=== PATIENT | male | born 1985 | race African-American/Black ===

== ENCOUNTER 2017-01-11 11:40 | Emergency (ER) | payer OTHER ==
[~2017-01-11] VITALS: Ht 185.4 cm; Wt 88.0 kg
[~2017-01-11 11:40] MED LIST: ATIVAN0.5 MG PO; LIORESAL 10MG T10 MG PO; LOTRIMIN CR1 %/30 GM TOP; LOTRISONE CREAM15 GM TOP; MOTRIN 600 MG600 MG PO; MOTRIN800 MG PO; POLYTRIM O200 GTT/BO OPH; PROTONIX40 M3 PO; VICODIN5-300 PO; ZOFRAN ODT4 M1 PO
[2017-01-11 11:48] VITALS: BP 167/89
--- NOTE | 2017-01-11 12:17 | ED THROAT/DENTAL COMPLAINT ---
History of Present Illness General Chief Complaint: General Adult Stated Complaint: SWOLLEN LYMPH NODES Source: patient, old records Exam Limitations: no limitations Vital Signs & Intake/Output Vital Signs & Intake/Output Vital Signs Date Time Temp Pulse Resp B/P Pulse O2 O2 Flow FiO2 Ox Delivery Rate 01/11 1148 97.7 67 18 167/89 99 Room Air Room Air Allergies Coded Allergies: NSAIDS (Non-Steroidal Anti-Inflamma (Intermediate, UPSET STOMACH 02/14/16) Reconcile Medications Amoxicillin 500 MG CAPSULE 1 CAP PO TID ANTIBIOTIC, INFECTION (Reported) Betamethasone Dipropionate 0.05 % CREAM..G. 1 LULA TOP BID SKIN PROBLEMS ( Reported) apply to affected area(s) Triage Note: TRIAGE: 31 Y/O MALE PRESENTS C/O ENLARGED RIGHT LYMPH NODE. HAD RECENT DENTAL WORK. BOUGHT A TOOTH FILLING ONLINE AND PUT IT IN HIMSELF. REPORTS SIGNIFICANT OTHER HAD A SWOLLEN LYMPH NODE AND WAS DIAGNOSED WITH STREP THROAT. HAD GONE TO THE URGENT CARE AND THEY SUGGESTED BLOOD WORK. Triage Nurses Notes Reviewed? yes Onset: Gradual Duration: day(s): (5), constant Timing: recent history Injury Environment: home Severity: mild Severity Numbers: 3 No Modifying Factors: none Associated Symptoms: denies HPI: 31-year-old male presents emergency room complaining of 2 enlarged lymph nodes in his neck which he first noticed 5 days ago. The patient states that he recently bought a tooth filling online which she placed prior to the swollen lymph nodes beginning. He denies pain fever chills night sweats no recent weight loss. He went to an urgent care today at which time he was prescribed amoxicillin, the patient states he was referred here for blood work. Patient states that he denies sore throat cough change in voice rhinorrhea congestion or dental pain. No chest pain shortness of breath or abdominal pain nausea or vomiting. There are no modifying factors or associated symptoms otherwise. no pain, no radiation of symptoms. he states the swollen lymph nodes have been fluctuating in size since they began there are nontender no rashes to his skin. Past History Travel History Traveled to [place] past 21 day No Medical History Any Pertinent Medical History? see below for history Neurological: NONE EENT: NONE Cardiovascular: NONE Respiratory: NONE Gastrointestinal: NONE Hepatic: NONE Renal: NONE Musculoskeletal: fracture, RT HAND FX Psychiatric: anxiety Endocrine: NONE Blood Disorders: NONE Cancer(s): NONE JUNIOR PHP DEVELOPER/Reproductive: NONE Surgical History Surgical History: ABD SX CHILD S/P TRAUMATIC INJURY-METAL INTO ABDOMEN Psychosocial History What is your primary language Greek Tobacco Use: Never used ETOH Use: denies use Illicit Drug Use: marijuana Family History Hx Contributory? No Review of Systems Review of Systems Constitutional: Reports: see HPI. All Other Systems: Reviewed and Negative Comments Review of systems: See HPI, All other systems negative. Constitutional, no chills no fever, no malaise HEENT: No visual changes no sore throat no congestion Cardiovascular: No chest pain , no palpitation , no orthopnea no ankle swelling Skin, no jaundice no rashes, no change in skin Respiratory: No dyspnea no cough no sputum GI: No nausea no vomiting, no diarrhea : No dysuria Muscle skeletal: No joint pain, no back pain, no neck pain, Neurologic: No numbness , no headache Psych: No stress Heme/endocrine: No bruising no bleeding Immunology: No lymphadenopathy Physical Exam Physical Exam General Appearance: well developed/nourished, no apparent distress, alert, awake Mouth/Throat: normal mouth inspection, pharynx normal Comments: Well-developed well-nourished patient in no apparent distress. HHead/Face: Atraumatic, no maxillary/frontal sinus tenderness, no facial swelling Eyes: PERRL, EOMI, no conjunctival injection. No nystagmus Ear:External auditory canal and Tympanic membranes clear, no erythema, no FB. Nose: atraumatic.Normal inspection: No bleeding, no septal hematoma Throat: Moist mucous membranes.Pharynx normal. No pharyngeal erythema/exudate seen. No stridor/drooling or assymetry. No swelling or edema. Neck: Supple, there are 2 localized lymph nodes one to the right submandibular and 1 to the left posterior cervical chain Nontender, FROM Back: FROM, Nontender Cardiovascular: Regular rate and rhythms no murmurs rubs or gallops, Respiratory: Chest nontender.There were no bony deformities, no asymmetry. No respiratory distress. Patient speaking in full complete sentences. Breath sounds clear to auscultation bilaterally: NO W/R/R Extremities: full range of motion, no inguinal or axilla adenopathy Neuro: Alert and oriented x3 Skin: Warm & dry;No appreciable rash on exposed skin Psych: Mood affect normal, normal memory normal judgment. Core Measures ACS in differential dx? No Severe Sepsis Present: No Septic Shock Present: No Progress Differential Diagnosis: Ludwigs angina, odontogenic abscess, kelsi-tonsillar abscess, strep pharyngitis, lymphadenopathy malignancy Plan of Care: Orders Procedure Date/time Status MONOSPOT TEST 01/11 1230 Complete CBC WITHOUT DIFFERENTIAL 01/11 1230 Complete BASIC METABOLIC PANEL 01/11 1230 Complete Laboratory Tests 01/11/17 1236: Anion Gap 12, Estimated GFR > 60, BUN/Creatinine Ratio 17.0, Glucose 97, Calcium 10.0, CBC w Diff NO MAN DIFF REQ, RBC 5.33, MCV 90.2, MCH 29.9, RDW 13.5, MPV 7.0 L, Gran % 72.0, Lymphocytes % 19.0 L, Monocytes % 5.5, Eosinophils % 3.1, Basophils % 0.4, Absolute Granulocytes 5.5, Absolute Lymphocytes 1.4, Absolute Monocytes 0.4, Absolute Eosinophils 0.2, Absolute Basophils 0, PUBS MCHC 33.2, Infectious [place] Titer NEGATIVE Old records reviewed labs ordered. Discussed the patient at length all of his lab results E for close follow-up with his primary care physician at [facility] , the patient has a prescription for amoxicillin already, he feels this point I answered all his questions cleared for discharge (TEDDY DICKSON,SAMREEN) Departure Departure Time of Disposition: 1318 Disposition: HOME OR SELF CARE Condition: Stable Clinical Impression Primary Impression: Lymphadenopathy Referrals: CATHLEEN BELL MD (PCP/Family) Additional Instructions: Follow up with [facility] clinic if symptoms persist as he may need an ultrasound in the future as an outpatient. Take your antibiotics as prescribed return with any concerns Departure Forms: Customer Survey General Discharge Information
[2017-01-11] MEDS ORDERED: BETAMETHASONE D15 G4 TOP (12:39)
[2017-01-11] MEDS ORDERED: AMOXICILLIN500 M2 PO (12:40)
[2017-01-11 12:44] LABS: ABSOLUTE BASOPHIL COUNT 0 /CUMM (0.0-0.2); ABSOLUTE EOSINOPHIL COUNT 0.2 /CUMM (0.0-0.7); ABSOLUTE GRANULOCYTE CT 5.5 /CUMM (1.4-6.5); ABSOLUTE LYMPH COUNT 1.4 /CUMM (1.2-3.4); ABSOLUTE MONOCYTE COUNT 0.4 /CUMM (0.10-0.60); BASOPHIL % 0.4 % (0.0-2.0); EOSINOPHIL % 3.1 % (0-5); HEMATOCRIT 48.1 % (42-52); MEAN CORPUSCULAR HGB 29.9 PG (27.0-31.0); MEAN CORPUSCULAR HGB CONC 33.2 G/DL (33.0-37.0); MEAN CORPUSCULAR VOLUME 90.2 FL (80.0-94.0); PLATELET COUNT 252 /CUMM (130-400); RBC DISTRIBUTION WIDTH 13.5 % (11.5-14.5); RED BLOOD CELL CT 5.33 /CUMM (4.70-6.10); WHITE BLOOD CELL COUNT 7.6 /CUMM (4.8-10.8)
== END 2017-01-11 13:42 ==
LOC: ERH 11:40
PROVIDERS: Physician Assistant Medical
DX: R59.1 Generalized enlarged lymph nodes (principal)

== ENCOUNTER 2018-06-29 22:00 | Emergency (ER) | payer OTHER ==
[~2018-06-29] VITALS: Ht 185.4 cm; Wt 83.9 kg
[~2018-06-29 22:00] MED LIST changes: +AMOXICILLIN500 M2 PO; +BETAMETHASONE D15 G4 TOP; +ZOFRAN ODT4 M1 SL
[2018-06-30] MEDS ORDERED: CYCLOBENZAPRINE10 M1 PO (00:48)
[2018-06-30] MEDS ORDERED: ZITHROMAX250 M2 PO (00:48)
[2018-06-30] MEDS ORDERED: PROVENTIL HFA6.7 GM INH (00:48)
[2018-06-30] MEDS ORDERED: NAPROSYN500 M1 PO (00:48)
[2018-06-30] MEDS ORDERED: FLONASE ALLERG9.9 ML NAS (00:49)
--- NOTE | 2018-06-30 00:50 | ED GENERAL ADULT ---
See Addendum History of Present Illness General Chief Complaint: General Adult Stated Complaint: SORE THROAT, BACK PAIN, SINUS INFECTION? Source: patient Exam Limitations: no limitations Vital Signs & Intake/Output Vital Signs & Intake/Output Vital Signs Date Time Temp Pulse Resp B/P B/P Pulse O2 O2 Flow FiO2 Mean Ox Delivery Rate 06/30 0111 98.2 78 16 138/68 98 Room Air Room Air 06/29 2210 99.7 87 20 122/82 98 Room Air ED Intake and Output 06/30 0000 06/29 1200 Intake Total Output Total Balance Patient 185 lb Weight Allergies Coded Allergies: NSAIDS (Non-Steroidal Anti-Inflamma (Intermediate, UPSET STOMACH 02/14/16) Reconcile Medications Albuterol Sulfate (Proventil Hfa) 90 MCG HFA.AER.AD 2 PUF INH Q4 PRN SOB Azithromycin (Zithromax) 250 MG TABLET 1 DP PO AD bronchitis 2 the first day followed by 1 for days 2-5 Cyclobenzaprine HCl 10 MG TABLET 1 TAB PO QPM PRN pain Fluticasone Propionate (Flonase Allergy Relief) 50 MCG/ACTUATION SPRAY.SUSP 1 SPRAY MARCIAL DAILY PRN nasal congestion Naproxen (Naprosyn) 500 MG TABLET 1 TAB PO BID PRN pain Ondansetron (Zofran Odt) 4 MG TAB.RAPDIS 1 TAB SL TID PRN nausea Triage Note: PT TO ED WITH C/O RUNNY NOSE, SORE THROAT X 1 DAY. +SINUS PRESSURE. ALSO C/O PRODUCTIVE COUGH X 1 DAY. ALSO C/O 2 MONTHS OF UPPER BACK PAIN. Triage Nurses Notes Reviewed? yes Onset: Gradual Duration: day(s): Timing: constant HPI: 32-year-old male with a history of anxiety presenting with nasal congestion, rhinorrhea, sinus pressure, sore throat, and cough productive of green sputum since yesterday. Patient reports that his girlfriend was recently sick with similar symptoms and is currently being treated with antibiotics for bronchitis. He is an active smoker of 1 pack/day. Has had mild shortness of breath, denies any chest pain. No fevers. Of note patient also reports intermittent upper back pain over the past 2 months that is worse with movement. 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 Denies numbness or paresthesias to the extremities. Denies IV drug use. (Gerda Barahona) Past History Travel History Traveled to [place] past 21 day No Medical History Any Pertinent Medical History? see below for history Neurological: NONE EENT: NONE Cardiovascular: NONE Respiratory: NONE Gastrointestinal: NONE Hepatic: NONE Renal: NONE Musculoskeletal: fracture, RT HAND FX Psychiatric: anxiety Endocrine: NONE Blood Disorders: NONE Cancer(s): NONE VESSEL OPERATOR/Reproductive: NONE Surgical History Surgical History: ABD SX CHILD S/P TRAUMATIC INJURY-METAL INTO ABDOMEN Psychosocial History What is your primary language Iraqi Tobacco Use: Current Daily Use Daily Tobacco Use Amount/Type: => 5 Cigarettes daily Family History Hx Contributory? No (Gerda Barahona) Review of Systems Review of Systems Constitutional: Reports: no symptoms. EENTM: Reports: see HPI. Respiratory: Reports: see HPI. Cardiovascular: Reports: no symptoms. GI: Reports: no symptoms. Genitourinary: Reports: no symptoms. Musculoskeletal: Reports: see HPI. Skin: Reports: no symptoms. Neurological/Psychological: Reports: no symptoms. Hematologic/Endocrine: Reports: no symptoms. Immunologic/Allergic: Reports: no symptoms. All Other Systems: Reviewed and Negative (Gerda Barahona) Physical Exam Physical Exam General Appearance: well developed/nourished, no apparent distress, alert, awake Comments: Gen.: Well-nourished, well-developed, no acute distress. Head: Normocephalic, atraumatic. Eyes: Normal inspection bilaterally Ears: Normal inspection bilaterally, TMs with good light reflex Nose: Diffuse mucosal edema and rhinorrhea Throat: Mild erythema, no exudates, edema, or tonsillar enlargement Neck: Normal inspection, no cervical lymphadenopathy Lungs: Breath sounds diminished bilaterally, no wheezing Heart: regular rate and rhythm Abdomen: soft and non-tender Back: Normal inspection, tender to palpation over bilateral thoracic muscles, no midline tenderness to palpation, unrestricted spinal range of motion Extremities: Normal inspection, upper extremities are neurovascularly intact Neurologic: alert and oriented x3, steady gait Skin: warm and dry Psychiatric: Normal mood and affect, no apparent delusions or hallucinations, behavior appropriate Core Measures ACS in differential dx? No CVA/TIA Diagnosis: No Sepsis Present: No Sepsis Focused Exam Completed? No (Gerda Barahona) Progress Differential Diagnoses I considered the following diagnoses in my evaluation of the patient: [URI versus sinusitis versus bronchitis versus pneumonia. Back pain is likely MSK strain.] Plan of Care: Orders Procedure Date/time Status THROAT CULTURE W/QUICK STREP 06/295 Active Rapid strep negative. Chest x-ray unremarkable. We will treat for sinusitis and bronchitis with azithromycin, and albuterol inhaler as needed for shortness of breath. Given naproxen and Flexeril for his back pain which is likely muscle strain secondary to his physical labor at work. Counseled on supportive care and strict return precautions. Initial ED EKG: none (Gerda Barahona) Departure Departure Disposition: HOME OR SELF CARE Condition: Stable Clinical Impression Primary Impression: Bronchitis Secondary Impressions: Back pain, Sinusitis Referrals: Latoya Tran MD (PCP/Family) Additional Instructions: Use naproxen and Flexeril as needed for your back pain. Apply warm compresses followed by gentle stretching 2-3 times daily. Take azithromycin as prescribed for your bronchitis and sinusitis. Use albuterol as needed for shortness of breath. Follow-up with your primary care provider for further evaluation. Return to the emergency department for any new or worsening symptoms per Departure Forms: Customer Survey General Discharge Information Prescriptions: Current Visit Scripts Naproxen (Naprosyn) 1 TAB PO BID PRN pain #60 TAB Cyclobenzaprine HCl 1 TAB PO QPM PRN pain #30 TAB Albuterol Sulfate (Proventil Hfa) 2 PUF INH Q4 PRN SOB #1 INHAL Azithromycin (Zithromax) 1 DP PO AD #6 TAB 2 the first day followed by 1 for days 2-5 Fluticasone Propionate (Flonase Allergy Relief) 1 SPRAY MARCIAL DAILY PRN nasal congestion #1 BOT (Gerda Barahona) PA/SENIOR RELATIONSHIP MANAGER Co-Sign Statement Statement: ED Attending supervision documentation- [] I saw and evaluated the patient. I have also reviewed all the pertinent lab results and diagnostic results. I agree with the findings and the plan of care as documented in the PA's/SENIOR RELATIONSHIP MANAGER's documentation. [x] I have reviewed the ED Record and agree with the PA's/SENIOR RELATIONSHIP MANAGER's documentation. [] Additions or exceptions (if any) to the PAs/SENIOR RELATIONSHIP MANAGER's note and plan are summarized below: [] (Mika BINGHAM,Samy Torres) Critical Care Note Critical Care Note Critical Care Time: non-applicable (Vimal DICKSON,Gerda)
[2018-06-30 01:11] VITALS: BP 138/68
--- NOTE | 2018-06-30 01:12 | RADIOLOGY REPORT ---
EXAMINATION: CHEST 2 VIEWS CLINICAL INFORMATION: Cough. COMPARISON: September 13, 2015. TECHNIQUE: PA and lateral views of the chest were obtained. FINDINGS: The cardiac silhouette is not enlarged. The mediastinal and hilar contours are unremarkable. There are neither pleural effusions nor pneumothoraces. There are no consolidations. The osseous structures are unremarkable. IMPRESSION: No evidence for acute disease.
== END 2018-06-30 01:20 ==
LOC: ERH 22:00
DX: J40 Bronchitis, not specified as acute or chronic (principal); J32.9 Chronic sinusitis, unspecified; M54.9 Dorsalgia, unspecified; F17.210 Nicotine dependence, cigarettes, uncomplicated; F41.9 Anxiety disorder, unspecified
CPT/HCPCS: 1263; 71046; 96372; J1885